=== PATIENT | male | born 1950 | race Caucasian/White ===

== ENCOUNTER 2017-10-13 06:24 | Day surgery (SDC) | payer MEDICARE, OTHER ==
[~2017-10-13] VITALS: Ht 185.4 cm; Wt 97.5 kg
[~2017-10-13 06:24] MED LIST: ALEVE220 M1 PO; MULTIVITAMIN ME1 TAB; TRAMADOL HCL50 MG PO
[2017-10-13 11:10] VITALS: BP 136/80
== END 2017-10-13 08:25 | disposition home or self-care (01) ==
LOC: ORM 06:24
PROVIDERS: ATTEND Anesthesiology Pain Medicine
PROC: 3E0R33Z Introduction of Anti-inflammatory into Spinal Canal, Percutaneous Approach (ICD-10-PCS; principal; 2017-10-13)
DX: M48.07 Spinal stenosis, lumbosacral region (principal); M43.17 Spondylolisthesis, lumbosacral region
CPT/HCPCS: Q9967

== ENCOUNTER 2017-10-27 05:56 | Day surgery (SDC) | payer MEDICARE, OTHER ==
[~2017-10-27] VITALS: Ht 185.4 cm; Wt 97.5 kg
== END 2017-10-27 06:50 | disposition home or self-care (01) ==
LOC: ORM 05:56
PROVIDERS: ATTEND Anesthesiology Pain Medicine
DX: M48.07 Spinal stenosis, lumbosacral region (principal); M43.17 Spondylolisthesis, lumbosacral region; Z53.8 Procedure and treatment not carried out for other reasons

== ENCOUNTER 2017-12-01 06:19 | Day surgery (SDC) | payer MEDICARE, OTHER ==
[~2017-12-01] VITALS: Ht 185.4 cm; Wt 97.5 kg
[2017-12-01 08:15] VITALS: BP 131/75
== END 2017-12-01 08:50 | disposition home or self-care (01) ==
LOC: ORM 06:19
PROVIDERS: ATTEND Anesthesiology Pain Medicine
PROC: 3E0T33Z Introduction of Anti-inflammatory into Peripheral Nerves and Plexi, Percutaneous Approach (ICD-10-PCS; principal; 2017-12-01)
PROC: 3E0T3BZ Introduction of Anesthetic Agent into Peripheral Nerves and Plexi, Percutaneous Approach (ICD-10-PCS; 2017-12-01)
PROC: BR161ZZ Fluoroscopy of Lumbar Facet Joint(s) using Low Osmolar Contrast (ICD-10-PCS; 2017-12-01)
PROC: 3E0T33Z Introduction of Anti-inflammatory into Peripheral Nerves and Plexi, Percutaneous Approach (ICD-10-PCS; 2017-12-01)
PROC: 3E0T3BZ Introduction of Anesthetic Agent into Peripheral Nerves and Plexi, Percutaneous Approach (ICD-10-PCS; 2017-12-01)
DX: M54.5 Low back pain (principal); M47.816 Spondylosis without myelopathy or radiculopathy, lumbar region

== ENCOUNTER 2018-01-05 07:04 | Day surgery (SDC) | payer MEDICARE, OTHER ==
[2018-01-05 08:32] VITALS: BP 119/73
== END 2018-01-05 09:05 | disposition home or self-care (01) ==
LOC: ORM 07:04
PROVIDERS: ATTEND Anesthesiology Pain Medicine
PROC: 3E0T33Z Introduction of Anti-inflammatory into Peripheral Nerves and Plexi, Percutaneous Approach (ICD-10-PCS; principal; 2018-01-05)
PROC: 3E0T3BZ Introduction of Anesthetic Agent into Peripheral Nerves and Plexi, Percutaneous Approach (ICD-10-PCS; 2018-01-05)
PROC: BR161ZZ Fluoroscopy of Lumbar Facet Joint(s) using Low Osmolar Contrast (ICD-10-PCS; 2018-01-05)
PROC: 3E0T33Z Introduction of Anti-inflammatory into Peripheral Nerves and Plexi, Percutaneous Approach (ICD-10-PCS; 2018-01-05)
PROC: 3E0T3BZ Introduction of Anesthetic Agent into Peripheral Nerves and Plexi, Percutaneous Approach (ICD-10-PCS; 2018-01-05)
PROC: 3E0T33Z Introduction of Anti-inflammatory into Peripheral Nerves and Plexi, Percutaneous Approach (ICD-10-PCS; 2018-01-05)
PROC: 3E0T3BZ Introduction of Anesthetic Agent into Peripheral Nerves and Plexi, Percutaneous Approach (ICD-10-PCS; 2018-01-05)
PROC: 3E0T33Z Introduction of Anti-inflammatory into Peripheral Nerves and Plexi, Percutaneous Approach (ICD-10-PCS; 2018-01-05)
PROC: 3E0T3BZ Introduction of Anesthetic Agent into Peripheral Nerves and Plexi, Percutaneous Approach (ICD-10-PCS; 2018-01-05)
PROC: 3E0T33Z Introduction of Anti-inflammatory into Peripheral Nerves and Plexi, Percutaneous Approach (ICD-10-PCS; 2018-01-05)
PROC: 3E0T3BZ Introduction of Anesthetic Agent into Peripheral Nerves and Plexi, Percutaneous Approach (ICD-10-PCS; 2018-01-05)
DX: M46.1 Sacroiliitis, not elsewhere classified (principal); M54.5 Low back pain; M79.605 Pain in left leg
CPT/HCPCS: 64493; 64450 ×3; 64494; G0260

== ENCOUNTER 2018-01-19 07:10 | Day surgery (SDC) | payer MEDICARE, OTHER ==
[2018-01-19 09:15] VITALS: BP 135/86
== END 2018-01-19 09:45 | disposition home or self-care (01) ==
LOC: ORM 07:10
PROVIDERS: ATTEND Anesthesiology Pain Medicine
PROC: 3E0U33Z Introduction of Anti-inflammatory into Joints, Percutaneous Approach (ICD-10-PCS; principal; 2018-01-19)
PROC: 3E0U3BZ Introduction of Anesthetic Agent into Joints, Percutaneous Approach (ICD-10-PCS; 2018-01-19)
DX: M46.1 Sacroiliitis, not elsewhere classified (principal); M54.5 Low back pain

== ENCOUNTER 2019-08-31 | Emergency (ER) | payer OTHER, MEDICARE ==
[2019-08-31] MEDS ORDERED: FLEXERIL PO (14:28)
== END 2019-08-31 14:55 | disposition home or self-care (01) | DRG 552 ==
DX: M54.5 Low back pain (principal); V89.2XXA Person injured in unspecified motor-vehicle accident, traffic, initial encounter

== ENCOUNTER 2020-08-25 18:36 | Emergency (ER) | payer MEDICARE, OTHER ==
[~2020-08-25] VITALS: Ht 185.4 cm; Wt 104.0 kg
[~2020-08-25 18:36] MED LIST changes: +FLEXERIL PO
[2020-08-25 19:46] VITALS: BP 130/95
== END 2020-08-25 20:00 | disposition home or self-care (01) ==
LOC: ED 18:36
PROC: 0HQGXZZ Repair Left Hand Skin, External Approach (ICD-10-PCS; principal; 2020-08-25)
DX: S61.211A Laceration without foreign body of left index finger without damage to nail, initial encounter (principal); W26.8XXA Contact with other sharp object(s), not elsewhere classified, initial encounter; Y92.009 Unspecified place in unspecified non-institutional (private) residence as the place of occurrence of the external cause

== ENCOUNTER 2020-11-21 14:05 | Observation (INO) | payer MEDICARE, OTHER ==
[~2020-11-21] VITALS: Ht 185.4 cm; Wt 102.0 kg
--- NOTE | 2020-11-21 14:10 | NUR ---
PT WHEELED TO ROOM # 14 FOR BEDSIDE TRIAGE.
--- NOTE | 2020-11-21 14:25 | NUR ---
PT MEDICATED WITH ASA AND NIT PATCH. TOLERATED WELL. DISCUSSED WAIT TIME FOR RESULTS. VERB UNDERSTANDING. DENIES ANY NEEDS. CALL LIGHT PROVIDED. OUTSIDE BARREL LATHE OPERATOR IN PLACE.
[2020-11-21 14:34] LABS: HEMATOCRIT 44.7 % (39.0-50.0); HEMOGLOBIN 15.3 g/dl (14.0-18.0); IMMATURE GRANULOCYTES 0.6 % (0.0-5.0); MEAN CELL VOLUME 94.1 fL CALC (80.0-100.0); MEAN CORPUSCULAR HGB 32.2 pG CALC (26.0-32.0); MEAN CORPUSCULAR HGB CONC 34.2 g/dL CAL (32.0-36.0); NEUT# 4.73 thou/uL (1.82-7.42); RED BLOOD COUNT 4.75 mill/uL (4.70-6.10); RED CELL DISTRI WIDTH 12.8 % (11.5-15.5)
[2020-11-21 14:59] LABS: ACT PARTIAL THROMBO TIME 22.9 SECONDS (20.0-32.5); ALBUMIN 4.5 g/dL (3.2-5.0); ALKALINE PHOSPHATASE 71 u/l (38-126); ANION GAP 13 (6-22 (CALC)); BILIRUBIN, TOTAL 0.7 mg/dL (0.0-1.4); BUN 21 mg/dL (8-23); BUN/CREATININE RATIO 22 (12-20 (CALC)); CARBON DIOXIDE 24 mmol/l (22-30); CHLORIDE 103 mmol/l (95-108); GFR > 60 ML/MIN (>=60 (CALC)); GFR FOR AFR.AMER. > 60 ML/MIN (>=60 (CALC)); LIPASE 122 u/l (23-300); POTASSIUM 4.2 mmol/l (3.5-5.1); SGOT/AST 34 u/l (19-48); SODIUM 137 mmol/l (137-146); TOTAL PROTEIN 7.7 g/dL (6.3-8.2)
--- NOTE | 2020-11-21 15:20 | NUR ---
BLOOD PRESSURE NOTED TO BE 95/63. NITRO PASTE REMOVED AT THIS TIME. PT REPORTS RELIEF FROM NITRO PASTE BUT DOES HAVE INTERMITTENT PRESSURE.
--- NOTE | 2020-11-21 15:39 | NUR ---
IVF INITIATED AT THIS TIME. PT RESTING ON STRETCHER WITH EYES OPEN. RESP EVEN AND UNLAB. SKIN COOL AND DRY. VERBALIZES NO NEEDS AT THIS. PLUMBING MECHANIC IN PLACE. CALL LIGHT WITHIN REACH.
--- NOTE | 2020-11-21 16:24 | NUR ---
PT RETURNS FROM RADIOLOGY IN STABLE CONDIITON. PLACED ON SALES COORDINATOR. ADVISED OF CONT WAIT TIME FOR RESULTS. VERBALIZED UNDERSTANDING. DENIES ANY NEEDS. CALL LIGHT WITHIN REACH.
--- NOTE | 2020-11-21 17:15 | NUR ---
COVID SWAB COLLECTED. PT TOLERATED WELL. RESP EVEN AND UNLABORED. SKIN WARM AND DRY. ADVISED OF CONT WAIT TIME FOR RESULTS. VERB UNDERSTANDING. DENIES ANY NEEDS. CALL LIGHT WITHIN REACH.
--- NOTE | 2020-11-21 17:43 | NUR ---
PT AMBULATORY TO BR W/A STEADY GAIT.
--- NOTE | 2020-11-21 18:15 | NUR ---
PT RESTING ON STRETCHER WITH EYS OPEN. RESP EVEN AND UNLABORED. SKIN COOL AND DRY. ADVISED OF PENDING ADMISISON TO FLOOR FOR OBSERVATION. PT VERBALIZED UNDERSTANDING AND IN AGREEMENT WITH ADMISSION. REPORRTS CHEST PAIN HAS RELIEVED AND IMPROVED. DENIES PRESSURE OR STABBING PAIN PRESENTED UPON ARRIVAL. HR NOTED ON MONITOR RANGING FROM 48-55. CALL LIGHT WITHIN REACH.
[2020-11-21 18:51] LABS: URINE BILIRUBIN - DIPSTICK NEGATIVE (NEGATIVE); URINE BLOOD DIPSTICK NEGATIVE (NEGATIVE); URINE COLOR YELLOW; URINE GLUCOSE - DIPSTICK NEGATIVE (NEGATIVE); URINE KETONE NEGATIVE (NEGATIVE); URINE LEUK ESTERASE NEGATIVE (NEGATIVE); URINE PROTEIN - DIPSTICK NEGATIVE (NEG-TRACE); URINE UROBILINOGEN - DIPSTICK 0.2 E.U./dL (0.2)
[2020-11-21 18:52] LABS: URINE NITRITE - DIPSTICK NEGATIVE (Negative)
--- NOTE | 2020-11-21 19:00 | NUR ---
REPORT PROVIDED TO ERIC GRIFFITH ON MEDSUR FLOOR SARA GRIFFITH ADVISED OF REPORT CALLED.
--- NOTE | 2020-11-21 19:09 | NUR ---
Admission Note Report Given to: ERIC GRIFFITH Transported by: X Wheelchair Stretcher Transported with: X Nurse Transporter X Patent IV O2 X [employer] Processor Location: ICU X MS2 PT TRANSPORTED IN STABLE CONDITION VIA WC.
--- NOTE | 2020-11-21 19:20 | NUR ---
PT RECEIVED FROM ED TO ROOM 279. ARRIVES VIA WC ACCOMPANIED BY DAISY PEREZ.PT AMBULATORY TO BED. GAIT UNSTEADY. PT DENIES PAIN AT THIS TIME. ORIENTED TO UNIT, ROOM, CALL OLIVARES, LIGHTS, TV. ICE WATER PROVIDED. CALL OLIVARES WITHIN REACH. AGREES TO CALL PRN.
[2020-11-21 19:21] VITALS: BP 149/75
--- NOTE | 2020-11-21 21:00 | NUR ---
SPOKE TO PTS FOR REQUESTED UPDATE. TEL [phone] CELL: [phone]. PHYSICAL ASSESMENT COMPLETE. PT CURRENTLY DENIES PAIN OR DISCOMFORT. SCHEDULED MEDICATIONS AND PRN MEDICATION ADMINISTERED, SEE E-MAR. PT DENIES ANY NEEDS AT THIS TIME. PLAN OF CARE REVIEWED, PT DENIES QUESTIONS, VERBALIZES UNDERSTANDING. ITEMS WITHIN REACH, BED LOCKED IN LOW POSITION W/ BEDRAILS UP X2. CALL OLIVARES WITHIN REACH, AGREES TO CALL PRN.
--- NOTE | 2020-11-21 23:58 | NUR ---
PT LAYING IN BED WITH EYES CLOSED, APPEARS TO BE SLEEPING, APPEARS COMFORTABLE AND IN NO DISTRESS. RESPIRATIONS REGULAR AND UNLABORED. ITEMS REMAIN WITHIN REACH, CALL OLIVARES REMAINS WITHIN REACH. BED REMAINS LOCKED AND IN LOW POSITION WITH BEDRAILS UP X2. WILL CONTINUE TO MONITOR.
[2020-11-22 00:35] VITALS: BP 127/70
[2020-11-22 04:00] VITALS: BP 127/75
--- NOTE | 2020-11-22 05:29 | NUR ---
PT RESTING IN BED, NO SIGNS OF DISTRESS NOTED, RESP EVEN AND UNLABORED. PT VOICES NO NEEDS OR COMPLAINTS AT THIS TIME. CALL LIGHT IN REACH, CONTINUE TO MONITOR.
[2020-11-22 06:26] LABS: HEMATOCRIT 43.8 % (39.0-50.0); HEMOGLOBIN 14.7 g/dl (14.0-18.0); IMMATURE GRANULOCYTES 0.6 % (0.0-5.0); MEAN CELL VOLUME 93.8 fL CALC (80.0-100.0); MEAN CORPUSCULAR HGB 31.5 pG CALC (26.0-32.0); MEAN CORPUSCULAR HGB CONC 33.6 g/dL CAL (32.0-36.0); NEUT# 3.99 thou/uL (1.82-7.42); RED BLOOD COUNT 4.67 mill/uL (4.70-6.10); RED CELL DISTRI WIDTH 13.1 % (11.5-15.5)
[2020-11-22 06:40] LABS: ALBUMIN 3.8 g/dL (3.2-5.0); ALKALINE PHOSPHATASE 52 u/l (38-126); ANION GAP 10 (6-22 (CALC)); BILIRUBIN, TOTAL 0.8 mg/dL (0.0-1.4); BUN 17 mg/dL (8-23); BUN/CREATININE RATIO 19 (12-20 (CALC)); CALCULATED LDLCHOLESTEROL 112 mg/dL (62-129 (CALC)); CARBON DIOXIDE 24 mmol/l (22-30); CHLORIDE 106 mmol/l (95-108); CHOLESTEROL HDL RATIO 4.3 (<4.4 (CALC)); CREATININE 0.9 mg/dL (0.7-1.3); GFR > 60 ML/MIN (>=60 (CALC)); GFR FOR AFR.AMER. > 60 ML/MIN (>=60 (CALC)); HDL CHOLESTEROL 42 mg/dL (>=40); MAGNESIUM 1.8 mg/dL (1.6-2.3); POTASSIUM 4.4 mmol/l (3.5-5.1); SGOT/AST 26 u/l (19-48); SODIUM 136 mmol/l (137-146); TOTAL CHOLESTEROL 183 mg/dl (0-199); TOTAL PROTEIN 6.5 g/dL (6.3-8.2); TOTAL TRIGLYCERIDES 141 mg/dl (30-149); VLDL CHOLESTROL 28 mg/dl (0-38 (CALC))
[2020-11-22 07:40] VITALS: BP 139/72
--- NOTE | 2020-11-22 07:55 | NUR ---
ASSESSMENT IS COMPLETED; iV SITE IS FREE FROM REDNESS OR EDEMA. HR IS REG,PULSES ARE STRONG X4, ABD IS SOFT WITH ACTIVE BS , BREATH SOUNDS ARE CLEAR, TELE MONITOR.
--- NOTE | 2020-11-22 10:32 | NUR ---
FAMILY IN TO VISIT WAS ESCORTED BY CLAY HOUSE WORKER
[2020-11-22 11:13] VITALS: BP 133/77
[2020-11-22] MEDS ORDERED: ASPIRIN 81 LOW81 MG PO (11:24)
--- NOTE | 2020-11-22 12:15 | NUR ---
IV SITE DISCONTINUED CATHETER INTACT. NO REDNESS OR EDEMA. DISCHAGE INSTRUCITONS GIVEN AND VERBALIZED UNDERSTANDING WITH FAMILY AND PT.
--- NOTE | 2020-11-22 12:22 | NUR ---
FAMILY AND PT DISCHAGED APRECIATIVE OF EVERYTHING. WITH INFORMATION ABOUT HER . IV SITE AND TELE MONITOR DISCONTINUED
--- NOTE | 2020-11-22 12:44 | NUR ---
Discharge instructions given. Patient verbalizes understanding of same. Discharged in stable condition via Wheelchair to Home with family. All belongings sent with pt.
== END 2020-11-22 12:22 | disposition home or self-care (01) ==
LOC: ED 14:05 → ED-I 17:52 → ED 18:08 → MS2 18:09
PROVIDERS: Nurse Practitioner; ADMIT Internal Medicine; ATTEND Internal Medicine
DX: R07.9 Chest pain, unspecified (principal); E04.1 Nontoxic single thyroid nodule; M54.5 Low back pain; G89.29 Other chronic pain; Z20.822 Contact with and (suspected) exposure to COVID-19
CPT/HCPCS: G0378; J1650; Q9967

== ENCOUNTER 2022-05-30 09:12 | Emergency (ER) | payer MEDICARE, OTHER ==
[~2022-05-30] VITALS: Ht 185.4 cm; Wt 102.3 kg
[~2022-05-30 09:12] MED LIST changes: +ASPIRIN 81 LOW81 MG PO
[2022-05-30 09:21] VITALS: BP 121/70
[2022-05-30 09:30] VITALS: BP 121/72
[2022-05-30 09:46] VITALS: BP 130/59
[2022-05-30 10:00] VITALS: BP 111/69
[2022-05-30 10:18] VITALS: BP 113/71
[2022-05-30 10:31] VITALS: BP 124/69
== END 2022-05-30 10:40 | disposition home or self-care (01) ==
LOC: ED 09:12
DX: S93.401A Sprain of unspecified ligament of right ankle, initial encounter (principal); X50.0XXA Overexertion from strenuous movement or load, initial encounter; Y92.009 Unspecified place in unspecified non-institutional (private) residence as the place of occurrence of the external cause

== ENCOUNTER 2024-04-02 13:49 | Emergency (ER) | payer MEDICARE, OTHER ==
[2024-04-02] VITALS (10 sets, daily range): BP systolic 116–148; BP diastolic 72–88
[~2024-04-02] VITALS: Ht 185.4 cm; Wt 100.0 kg
[2024-04-02 14:20] LABS: BASO% 0.3 % (0-3); EOS% 1.1 % (0-8); HEMATOCRIT 46.8 % (39.0-50.0); HEMOGLOBIN 15.8 g/dl (14.0-18.0); IMMATURE GRANULOCYTES 0.4 % (0.0-5.0); LYMPH% 16.1 % (15-41); MEAN CELL VOLUME 94.2 fL CALC (80.0-100.0); MEAN CORPUSCULAR HGB 31.8 pG CALC (26.0-32.0); MEAN CORPUSCULAR HGB CONC 33.8 g/dL CAL (32.0-36.0); MONO% 5.9 % (2-13); NEUT# 7.45 thou/uL (1.82-7.42); NEUT% 76.2 % (42-76); RED BLOOD COUNT 4.97 mill/uL (4.70-6.10)
[2024-04-02 14:30] LABS: ALBUMIN 4.4 g/dL (3.2-5.0); BILIRUBIN, TOTAL 0.9 mg/dL (0.2-1.3); CREATININE 1.1 mg/dL (0.7-1.3); POTASSIUM 4.5 mmol/l (3.5-5.1); TOTAL PROTEIN 7.5 g/dL (6.3-8.2)
[2024-04-02] MEDS ORDERED: COLCHICINE 0.6 MG/TAB PO ONE ×2 (15:15→15:20)
== END 2024-04-02 15:48 | disposition home or self-care (01) ==
LOC: ED 13:49
PROVIDERS: Nurse Practitioner Family
DX: M10.072 Idiopathic gout, left ankle and foot (principal)